=== PATIENT | female | born 1930 | race Caucasian/White ===

== ENCOUNTER → 2017-03-30 | Outpatient (CLI) | payer MEDICARE, BC ==
[~2017-03-30] MED LIST: ASPI81TA3 PO; BARIUM SULF 2% 450 ML BTL (BERRY SMOOTHIE) PO ONE; IOHEXOL 300MG/ML 150 ML BTL ONE; LOSA100T7 PO; METO100T13 PO; ROSU5TAB5 PO; SOD CHLORIDE 0.9% 100 ML ONE; TRIA1TAB PO
--- NOTE | 2017-03-30 19:23 | RADRPT ---
PROCEDURE: CT Abdomen and Pelvis with contrast. CLINICAL INDICATION: Abdominal pain, colitis. TECHNIQUE: A CT scan of the abdomen and pelvis was performed with intravenous contrast. The patie nt was scanned following the uncomplicated intravenous administration of 98 cc of Omnipaque-300. Co jatin and sagittal reformatted images were obtained from the axial source images. Images were review ed on a high-resolution PACS workstation. CTDIvol: 6.22 mGy. DLP: 196.61 mGy-cm. One or more of the following dose reduction techniques were used: - Automated exposure control. - Adjustment of the mA and/or kV according to patient size. - Use of iterative reconstruction technique. COMPARISON: None. FINDINGS: The lung bases are clear. The liver is unremarkable. The gallbladder is normal in appearance. The common bile duct is not dila jose. The spleen is not enlarged. No pancreatic lesion is identified and there is no pancreatic ducta l dilatation. The adrenal glands are unremarkable. The kidneys are normal in size. There is no perinephric fat stranding. No hydronephrosis is seen. Evaluation of the bowel is limited by motion artifact. The small and large bowel are normal in [place]. Portions of the descending and sigmoid colon are underdistended, limiting evaluation for coloni c wall thickening. There is mild sigmoid colon diverticulosis. The appendix is normal. The urinary bladder is unremarkable. There are bilateral ovarian cysts measuring up to 1.5 cm on the left. The uterus is unremarkable. There is trace pelvic ascites. No lymphadenopathy is identified. No pneumoperitoneum is seen. There are moderate arterial calcifica tions. No suspicious osseous lesion is idenitified. IMPRESSION: 1. Limited evaluation of the bowel due to motion artifact. 2. Limited evaluation for colonic wall thickening along portions of the descending and sigmoid colo n due to colonic underdistension. Colitis cannot be excluded in these regions. 3. Mild sigmoid colon diverticulosis. 4. Normal appendix. 5. Trace pelvic ascites. 6. Moderate atherosclerotic arterial calcifications. RPTAT: HTAR .Antonio Ferguson MD, MD Date Time Electronically viewed and signed by .Antonio Ferguson MD, on 03/30/2017 19:22 .R/
== END | disposition home or self-care (01) ==
LOC: C/S 13:50
PROVIDERS: ATTEND Internal Medicine
DX: R10.9 Unspecified abdominal pain (principal); K57.90 Diverticulosis of intestine, part unspecified, without perforation or abscess without bleeding; R18.8 Other ascites; I70.209 Unspecified atherosclerosis of native arteries of extremities, unspecified extremity; N83.202 Unspecified ovarian cyst, left side; N83.201 Unspecified ovarian cyst, right side
CPT/HCPCS: 74177; Q9967